=== PATIENT | male | born 2005 | race Two or more races ===

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

== ENCOUNTER 2024-06-28 20:42 | Emergency (ER) | payer BC, OTHER ==
--- NOTE | 2024-06-28 21:07 | ED ---
General Adult HPI - General Chief complaint: ENT Stated complaint: Sore in throat,Anxiety Time Seen by Provider: 06/28/24 20:55 Source: patient, RN notes reviewed Mode of arrival: ambulatory Limitations: no limitations - History of Present Illness Initial comments: This is a 19-year-old male with generalized anxiety and Tourette's presenting to the emergency department for complaint of worsening anxiety and sore throat. Patient states that earlier this afternoon he began to experience a sore throat on the back right side of his throat that is causing pain while swallowing. Additionally, patient has recently had an increase in his Adderall dosage with addition of medication caplyta to aid with anxiety. He states that he feels like his symptoms have worsened. He states a panic attack yesterday. He denies suicidal ideation, homicidal ideation. Patient endorses paranoia and visual hallucinations. Follow-up appointment scheduled with psychiatry on 07/06/24. - Related Data Home Medications Medication Instructions Recorded Confirmed Cetirizine HCl [Zyrtec] 10 mg PO DAILY 11/05/22 11/05/22 Previous Rx's Medication Instructions Recorded ARIPiprazole [Abilify] 10 mg PO DAILY 15 Days #30 tab 11/08/22 Propranolol [Inderal] 20 mg PO BID 15 Days #30 tab 11/08/22 busPIRone HCl [Buspar] 10 mg PO BID 15 Days #30 tab 11/08/22 Allergies Allergy/AdvReac Type Severity Reaction Status Date / Time No Known Allergies Allergy Verified 06/28/24 20:53 Review of Systems ROS Statement: Those systems with pertinent positive or pertinent negative responses have been documented in the HPI. ROS Other: All systems not noted in ROS Statement are negative. Past Medical History Past Medical History: No Reported History History of Any Multi-Drug Resistant Organisms: None Reported Past Surgical History: No Surgical Hx Reported Past Anesthesia/Blood Transfusion Reactions: No Reported Reaction Past Psychological History: ADD/ADHD, Anxiety, Depression Smoking Status: Never smoker Past Alcohol Use History: None Reported Past Drug Use History: None Reported - Past Family History Mother History Unknown: Yes Additional Family Medical History / Comment(s): Patient unsure of mother's health conditions but does live with her General Exam Limitations: no limitations General appearance: alert, in no apparent distress Neck exam: Present: normal inspection. Absent: tenderness, meningismus, lymphadenopathy Respiratory exam: Present: normal lung sounds bilaterally. Absent: respiratory distress, wheezes, rales, rhonchi, stridor Cardiovascular Exam: Present: regular rate, normal rhythm, normal heart sounds. Absent: systolic murmur, diastolic murmur, rubs, gallop, clicks GI/Abdominal exam: Present: soft, normal bowel sounds. Absent: distended, tenderness, guarding, rebound, rigid Extremities exam: Present: normal inspection, full ROM, normal capillary refill. Absent: tenderness, pedal edema, joint swelling, calf tenderness Back exam: Present: normal inspection Psychiatric exam: Present: anxious, flat affect. Absent: normal affect Expanded Focused psych exam: Absent: delusional, euphoric Course Vital Signs 06/28/24 06/28/24 20:48 22:34 Temperature 98.7 F 98.8 F Pulse Rate 95 84 Respiratory 16 18 Rate Blood Pressure 111/84 110/78 O2 Sat by Pulse 98 99 Oximetry Medical Decision Making - Medical Decision Making Was pt. sent in by a medical professional or institution (, PA, MENTAL RETARDATION AIDE, urgent care, hospital, or retirement...) When possible be specific @ -No Did you speak to anyone other than the patient for history (EMS, parent, family, police, friend...)? What history was obtained from this source @ -No Did you review nursing and triage notes (agree or disagree)? Why? @ -I reviewed and agree with nursing and triage notes Were old charts reviewed (outside hosp., previous admission, EMS record, old EKG, old radiological studies, urgent care reports/EKG's, retirement records)? Report findings @ -No old charts were reviewed Differential Diagnosis (chest pain, altered mental status, abdominal pain women, abdominal pain men, vaginal bleeding, weakness, fever, dyspnea, syncope, headache, dizziness, GI bleed, back pain, seizure, CVA, palpatations, mental health, musculoskeletal)? @ -Differential Mental Health Depression, anxiety, bipolar, psychosis, schizophrenia, borderline personality, situational depression, adjustment disorder, behavioral disorder, brain tumor, malingering, substance abuse, encephalopathy, medication reaction, dementia, hypothyroidism, degenerative neurologic disorder, lupus.... This is not meant to be all-inclusive list EKG interpreted by me (3pts min.). @ -None X-rays interpreted by me (1pt min.). @ -None done CT interpreted by me (1pt min.). @ -None done U/S interpreted by me (1pt. min.). @ -None done What testing was considered but not performed or refused? (CT, X-rays, U/S, labs)? Why? @ -None What meds were considered but not given or refused? Why? @ -None Did you discuss the management of the patient with other professionals (professionals i.e. Dr., PA, MENTAL RETARDATION AIDE, lab, RT, psych nurse, social science analyst, circular distributor, teacher, special technical operations officer, catalytic case operator)? Give summary @ -No Was smoking cessation discussed for >3mins.? @ -No Was critical care preformed (if so, how long)? @ -No Were there social determinants of health that impacted care today? How? (Homelessness, low income, unemployed, alcoholism, drug addiction, transportation, low edu. Level, literacy, decrease access to med. care, retirement, rehab)? @ -No Was there de-escalation of care discussed even if they declined (Discuss DNR or withdrawal of care, Hospice)? DNR status @ -No What co-morbidities impacted this encounter? (DM, HTN, Smoking, COPD, CAD, Cancer, CVA, ARF, Chemo, Hep., AIDS, mental health diagnosis, sleep apnea, morbid obesity)? @ -None Was patient admitted / discharged? Hospital course, mention meds given and route, prescriptions, significant lab abnormalities, going to OR and other pertinent info. @ -Discharge. 19 old male presenting with generalized anxiety and sore throat. There is a noted aphthous ulcer of the right posterior oropharynx. Patient is tolerating oral secretions and no signs respiratory distress. His vitals are stable. He is noted to be anxious on exam and minimal making eye contact. He is provided with dose of Ativan. Viral testing and strep is negative. Recommend the patient lower dose of Adderall and follow-up within the next week with psychiatrist for further evaluation. Return parameters discussed. Case discussed with Dr. Manley Undiagnosed new problem with uncertain prognosis? @ -No Drug Therapy requiring intensive monitoring for toxicity (Heparin, Nitro, Insulin, Cardizem)? @ -No Were any procedures done? @ -No Diagnosis/symptom? @ -generalized anxiety Acute, or Chronic, or Acute on Chronic? @ -acute Uncomplicated (without systemic symptoms) or Complicated (systemic symptoms)? @ -uncomplicated Side effects of treatment? @ -No Exacerbation, Progression, or Severe Exacerbation? @ -No Poses a threat to life or bodily function? How? (Chest pain, [place], [place], pneumonia, PE, COPD, DKA, ARF, appy, cholecystitis, CVA, Diverticulitis, Homicidal, Suicidal, threat to staff... and all critical care pts) @ -No - Lab Data Lab Results 06/28/24 06/28/24 Range/Units 21:18 21:18 Influenza Type A (PCR) Not Detected (Not Detectd) Influenza Type B (PCR) Not Detected (Not Detectd) RSV (PCR) Not Detected (Not Detectd) SARS-CoV-2 (PCR) Not Detected (Not Detectd) Group A Strep (PCR) NOT DETECTED (Not Detectd) Disposition Clinical Impression: Generalized anxiety disorder, Aphthous ulcer Disposition: HOME SELF-CARE Condition: Good Instructions (If sedation given, give patient instructions): Anxiety (ED) Additional Instructions: Please return to the Emergency Department if symptoms worsen or any other concerns. As discussed, lower the dose of your prescribed Adderall and follow- up within the next week with your psychiatrist. Is patient prescribed a controlled substance at d/c from ED?: No Referrals: Lucius Mueller DO [Primary Care Provider] - 1-2 days Time of Disposition: 22:25
[2024-06-28] MEDS: LORazepam 1 MG TAB PO STA (21:18)
[2024-06-28 22:10] LABS: Influenza A Not Detected (Not Detectd); Influenza B Not Detected (Not Detectd); RSV Not Detected (Not Detectd)
[2024-06-28 22:37] VITALS: BP 110/78; PULSE 84; RESP 18; TEMP 98.8
== END 2024-06-28 22:34 | disposition home or self-care (01) ==
LOC: EC 20:42
DX: F41.1 Generalized anxiety disorder (principal); K12.0 Recurrent oral aphthae
CPT/HCPCS: 87636; 87651; 99283